=== PATIENT | male | born 1940 | race Caucasian/White ===

== ENCOUNTER 2017-07-07 07:40 | Emergency (ER) | payer MEDICARE, OTHER ==
[2017-07-07] MEDS ORDERED: Ketorolac Tromethamine 30 MG/ML VIAL ONE (08:09)
[2017-07-07] MEDS ORDERED: predniSONE 20 MG TAB ONE (08:09)
[2017-07-07] MEDS ORDERED: Morphine 5 MG/ML SYRINGE ONE (08:09)
== END 2017-07-07 08:25 | disposition home or self-care (01) ==
LOC: SCSER 07:40
DX: M10.9 Gout, unspecified (principal); I48.91 Unspecified atrial fibrillation; K21.9 Gastro-esophageal reflux disease without esophagitis; I10 Essential (primary) hypertension; Z85.828 Personal history of other malignant neoplasm of skin
CPT/HCPCS: 96372; J2270; J1885; J7506